=== PATIENT | male | born 1955 | race Caucasian/White ===

== ENCOUNTER 2018-11-26 11:52 | Emergency (ER) | payer OTHER ==
[2018-11-26 11:59] VITALS: TEMP 97
[2018-11-26] MEDS ORDERED: LIDOCAINE HCL 2% GEL TOP ONE ×2 (12:07→13:00)
[2018-11-26] MEDS ORDERED: LORAZEPAM 2 MG/ML SOL IV ONE (12:42)
[2018-11-26] MEDS ORDERED: SODIUM CHLORIDE 0.9% 50 ML 25 ML IV PRN (12:44)
[2018-11-26] MEDS ORDERED: LORAZEPAM 2 MG/ML SOL ONE (12:50)
[2018-11-26] MEDS ORDERED: ONDANSETRON HCL 4 MG/2 ML SOL ONE (13:11)
[2018-11-26] MEDS ORDERED: MORPHINE SULFATE 10 MG/ML SOL ONE (13:11)
[2018-11-26] MEDS ORDERED: MORPHINE SULFATE 10 MG/ML SOL IV ONE (13:11)
[2018-11-26] MEDS ORDERED: ONDANSETRON HCL 4 MG/2 ML SOL IV ONE (13:11)
[2018-11-26 13:46] LABS: APPEARANCE,URINE Slightly Cloudy; BILIRUBIN,URINE NEGATIVE (NEGATIVE); COLOR,URINE Amber; GLUCOSE, URINE (UA) NEGATIVE (NEGATIVE); KETONES,URINE NEGATIVE (NEGATIVE); LEUKOCYTE ESTERASE ,URINE NEGATIVE (NEGATIVE); NITRATE,URINE NEGATIVE (NEGATIVE); OCCULT BLOOD,URINE 2+ (NEG-TRACE); PH,URINE 6.5; UROBILINOGEN,URINE 0.2 (0.2-1.0 EU)
[2018-11-26 14:03] LABS: BACTERIA 2+ (< 1+); CRYSTALS NEGATIVE (0-3 AVE/HPF); EPITHELIAL CELLS NEGATIVE (SQUAMOUS); RBC,URINE 120-140 (0-3AV/HPF); WBC,URINE NEGATIVE (0-5AV/HPF)
[2018-11-26 14:14] VITALS: BP 127/94; PULSE 101; RESP 18; O2SAT 94
== END 2018-11-26 14:22 | disposition home or self-care (01) | DRG 700 ==
LOC: ED 11:52
DX: N32.0 Bladder-neck obstruction (principal); Z85.46 Personal history of malignant neoplasm of prostate
CPT/HCPCS: 81001; 87088; 96374; 96375; 99283; 99284; J2060; J2270; J2405; A9270-GY